=== PATIENT | male | born 1955 | race Caucasian/White ===

== ENCOUNTER 2018-03-26 08:54 | Outpatient (CLI) | payer BC ==
--- NOTE | 2018-03-26 11:26 | MRI ---
MRI OF THE LEFT KNEE: DATE: 03/26/2018. PROVIDED CLINICAL HISTORY: Left knee pain. FINDINGS: There is a thickened and hyperintense appearance to the anterior cruciate ligament with intact fibers demonstrated, compatible with mucinous degeneration. There is a thickened appearance to the posteri or cruciate ligament which may reflect prior partial tear. The medial collateral ligament, lateral c ollateral ligamentous complex, and extensor mechanism appear intact. There is a complex nondisplaced tear involving the body and posterior horn of the medial meniscus. T he lateral meniscus demonstrates no evidence for tear. There is generalized articular cartilage thinning without focal defect. Several small foci of partia l thickness fissuring are seen involving the median ridge of the patella. There is a small knee joint effusion. No focal concerning regional marrow or muscular signal abnorma lity is evident. Several circumscribed foci of rounded signal alteration are present within the subc utaneous adipose layer about the knee, which are nonspecific. IMPRESSION: 1. Body and posterior horn medial meniscal tear. 2. Small knee joint effusion. 3. 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 POS: [facility]
== END 2018-03-26 08:55 | disposition home or self-care (01) ==
LOC: BICMRI 08:54
PROVIDERS: ATTEND Orthopaedic Surgery
DX: M25.562 Pain in left knee (principal); S83.242A Other tear of medial meniscus, current injury, left knee, initial encounter; M25.462 Effusion, left knee; S83.512A Sprain of anterior cruciate ligament of left knee, initial encounter